=== PATIENT | female | born 1990 | race Caucasian/White ===

== ENCOUNTER 2018-09-29 12:17 | Emergency (ER) | payer OTHER ==
[~2018-09-29] VITALS: Ht 167.6 cm; Wt 80.7 kg
[2018-09-29 12:45] VITALS: Ht 167.6 cm; Wt 80.7 kg
[2018-09-29 13:12] LABS: BASOPHIL % 0.5 % (0-2); PLATELET COUNT 214 x10^3mcL (130-400); RED CELL DISTRIBUTION WIDTH 12.8 % (11.5-14.5)
[2018-09-29 13:24] LABS: CALCIUM 8.8 mg/dL (8.5-10.1); CARBON DIOXIDE 26.7 mmol/L (21-32); CHLORIDE SERUM 104 mmol/L (98-107); CREATININE SERUM 0.7 mg/dL (0.6-1.0); GFR1 > 60 mL/min; GLUCOSE SERUM 96 mg/dL (74-106); POTASSIUM SERUM 3.9 mmol/L (3.5-5.1); SODIUM SERUM 140 mmol/L (136-145)
[2018-09-29 13:30] LABS: ALKALINE PHOSPHATASE 91 U/L (46-116); ALT/SGPT 80 U/L (14-59); AST/SGOT 23 U/L (15-37); BILIRUBIN TOTAL 0.57 mg/dL (0.20-1.00); TOTAL PROTEIN, SERUM 7.7 g/dL (6.4-8.2)
[2018-09-29 14:58] VITALS: BP 121/75
== END 2018-09-29 14:58 | disposition home or self-care (01) ==
LOC: ED 12:17
DX: K29.00 Acute gastritis without bleeding (principal); Z91.041 Radiographic dye allergy status; Z91.013 Allergy to seafood; Z90.49 Acquired absence of other specified parts of digestive tract
CPT/HCPCS: J2405; J7030

== ENCOUNTER 2018-11-22 17:52 | Emergency (ER) | payer OTHER ==
[~2018-11-22] VITALS: Ht 167.6 cm; Wt 83.0 kg
[2018-11-22 18:39] VITALS: Ht 167.6 cm; Wt 83.0 kg
[2018-11-22 19:25] LABS: CALCIUM 8.2 mg/dL (8.5-10.1); CARBON DIOXIDE 31.3 mmol/L (21-32); CHLORIDE SERUM 105 mmol/L (98-107); CREATININE SERUM 0.7 mg/dL (0.6-1.0); GFR1 > 60 mL/min; GLUCOSE SERUM 100 mg/dL (74-106); POTASSIUM SERUM 3.9 mmol/L (3.5-5.1); SODIUM SERUM 142 mmol/L (136-145)
[2018-11-22 19:30] LABS: ALBUMIN 3.9 g/dL (3.4-5.0); ALKALINE PHOSPHATASE 115 U/L (46-116); ALT/SGPT 31 U/L (14-59); AST/SGOT 19 U/L (15-37); BILIRUBIN TOTAL 0.27 mg/dL (0.20-1.00); LIPASE 143 IU/L (73-393); TOTAL PROTEIN, SERUM 7.7 g/dL (6.4-8.2)
[2018-11-22 19:36] LABS: BASOPHIL % 0.5 % (0-2); PLATELET COUNT 215 x10^3mcL (130-400); RED CELL DISTRIBUTION WIDTH 12.5 % (11.5-14.5)
[2018-11-23 02:33] VITALS: BP 100/57
== END 2018-11-23 02:33 | disposition home or self-care (01) ==
LOC: ED 17:52
DX: R10.31 Right lower quadrant pain (principal); Z88.1 Allergy status to other antibiotic agents; Z90.49 Acquired absence of other specified parts of digestive tract
CPT/HCPCS: J1885; J2270; J2405; J7030; Q9967

== ENCOUNTER 2019-03-01 07:57 | Emergency (ER) | payer OTHER ==
[~2019-03-01] VITALS: Ht 167.6 cm; Wt 86.3 kg
[2019-03-01 08:03] VITALS: BP 119/74; Ht 167.6 cm; Wt 86.3 kg
== END 2019-03-01 09:49 | disposition home or self-care (01) ==
LOC: ED 07:57
DX: O99.511 Diseases of the respiratory system complicating pregnancy, first trimester (principal); J11.1 Influenza due to unidentified influenza virus with other respiratory manifestations; Z3A.00 Weeks of gestation of pregnancy not specified; Z88.8 Allergy status to other drugs, medicaments and biological substances; Z88.6 Allergy status to analgesic agent